=== PATIENT | male | born 1945 | race Caucasian/White ===

== ENCOUNTER 2016-06-08 23:55 | Emergency (ER) | payer MEDICARE, BC ==
[~2016-06-08] VITALS: Ht 172.7 cm; Wt 90.7 kg
[2016-06-09 00:23] VITALS: BP 128/82
[2016-06-09] MEDS ORDERED: TOPROL XL25 MG ORAL (00:24)
[2016-06-09] MEDS ORDERED: UROXATRAL10 MG ORAL (00:24)
[2016-06-09] MEDS ORDERED: COUMADIN10 MG ORAL (00:24)
[2016-06-09] MEDS ORDERED: METOPROLOL SUC100 MG ORAL (00:24)
[2016-06-09 01:14] LABS: BASOPHILS % (AUTO) 1.4 % (0.0-2.0); EOSINOPHILS % (AUTO) 3.7 % (0.0-3.0); MEAN CORPUSCULAR HEMOGLOBIN 30.4 PG (27.0-31.0); MEAN CORPUSCULAR HGB CONC 33.8 G/DL (32.0-36.0); MEAN CORPUSCULAR VOLUME 90 FL (80-99); MEAN PLATELET VOLUME 5.7 FL (6.5-10.1); MONOCYTES % (AUTO) 10.7 % (1.0-10.0); NEUTROPHILS % (AUTO) 61.3 % (45.0-75.0); PLATELET COUNT 327 K/UL (150-450); RED BLOOD COUNT 4.99 M/UL (4.70-6.10); RED CELL DISTRIBUTION WIDTH 12.5 % (11.6-14.8); WHITE BLOOD COUNT 11.9 K/UL (4.8-10.8)
[2016-06-09 01:20] LABS: INR 1.1 (0.9-1.1)
[2016-06-09 01:35] LABS: TROPONIN I < 0.30 ng/mL (<=0.30)
[2016-06-09 01:42] LABS: ALANINE AMINOTRANSFERASE 14 U/L (3-41); ANION GAP 17 (5-15); ASPARTATE AMINO TRANSFERASE 17 U/L (5-40); CALCIUM 9.2 mg/dL (8.6-10.2); CARBON DIOXIDE 23 mEQ/L (20-30); CHLORIDE 98 mEQ/L (98-107); GLOMERULAR FILTRATION RATE > 60 mL/min (>60); HEMOLYSIS 5; POTASSIUM 4.1 mEQ/L (3.4-4.9); SODIUM 138 mEQ/L (135-145)
[2016-06-09 01:52] LABS: CKMB 1.9 ng/mL (< 6.7)
[2016-06-09 02:31] LABS: ALBUMIN/GLOBULIN RATIO 0.9 (1.0-2.7); TOTAL PROTEIN 7.7 g/dL (6.6-8.7)
[2016-06-09] MEDS ORDERED: Xarelto 10mg tab ORAL STA (02:33)
--- NOTE | 2016-06-09 03:44 | Emergency Room Report ---
History of Present Illness General Chief Complaint: Chest Pain Source: Patient Present Illness HPI 70YO M with 2-3 days of central non-radiating chest pain, intermittent, 6/10. No assoc nausea/vomiting/diaphoresis. States he was recently switched from Coumadin to Xarelto for known AFIB but Rx was accidentally sent to [place] by PMD Dr Olson. He has not taken Xarelto or Coumadin in 7 days. He denies SOB , abd pain, urinary complaints, fever/chills cough. Allergies: Coded Allergies: No Known Allergies (Unverified , 06/09/16) Patient History Past Medical History: AFib Past Surgical History: none Pertinent Family History: none Social History: Denies: alcohol use, drug use, smoking Immunizations: UTD Reviewed Nursing Documentation: PMH: Agreed, PSxH: Agreed Nursing Documentation-PMH Hx Cardiac Problems: Yes - atrial fib, gout Review of Systems All Other Systems: negative except mentioned in HPI Physical Exam Vital Signs Date Time Temp Pulse Resp B/P Pulse Ox O2 Delivery O2 Flow Rate FiO2 06/09/16 00:13 98.2 90 18 128/82 100 Room Air Sp02 EP Interpretation: reviewed, normal General Appearance: normal inspection, well appearing, no apparent distress, alert, GCS 15, non-toxic, other - Resting comfortably Head: normocephalic, atraumatic Eyes: bilateral eye EOMI, bilateral eye PERRL ENT: normal ENT inspection, hearing grossly normal, normal voice Neck: normal inspection, full range of motion, supple, no bony tend Respiratory: normal inspection, lungs clear, normal breath sounds, no respiratory distress, no retraction, no wheezing Cardiovascular #1: no edema, irregularly irregular Gastrointestinal: normal inspection, normal bowel sounds, non tender, soft, no guarding, no hernia Genitourinary: no CVA tenderness Musculoskeletal: normal inspection, back normal, normal range of motion, Flor' s Sign negative Neurologic: normal inspection, alert, oriented x3, responsive, 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 I attest that this information is true, accurate and complete to the best of my knowledge. I understand that any falsification, omission, or concealment of material fact may subject me to administrative, civil, or criminal liability. This patient warrants hospital admission for extreme of age and has a condition that cannot be treated as outpatient. Diagnostic Impression: Primary Impression: Chest pain Qualified Codes: R07.9 - Chest pain, unspecified ER Course ECG is Atrial fib without RVR Labs: Mild leuks but afebrile and no PNA or other source of sepsis/infection. H &H stable. Troponin 0. CXR: No PNA, PTX or pulm congestion Gave patient his recommended Xarelto dose per PMD [place] Chest pain - no acute ischemia on ECG. - Troponin 0. - Unlikely ACS given duration of symptoms - Angina vs MSK pain Strongly recommended admission to patient in multiple conversations however patient doesnt want to stay. He is sober, alert and oriented. Has Capacity Lives "around the corner." Has Rx for Xarelto. Prefers f/up with Dr Olson instead Understands risks of leaving including heart attack, permanent disability, Verbalized understanding, signed AMA paperwork EKG Diagnostic Results Rate: other - Atrial fib WITHOUT RVR ST Segments: no acute changes ASA given to the pt in ED: No Rhythm Strip Diag. Results EP Interpretation: yes Rate: 80 Rhythm: other Chest X-Ray Diagnostic Results EP Interpretation: Yes Findings: no consolidation, no effusion, no pneumothorax, no acute cardiopulmonary disease Number of Views: 1 Last Vital Signs Date Time Temp Pulse Resp B/P Pulse Ox O2 Delivery O2 Flow Rate FiO2 06/09/16 00:23 98.2 89 18 128/82 100 Room Air Status: improved Disposition: AGAINST MEDICAL ADVICE Condition: Serious Referrals: EVELYNE ARMAS (PCP) FLIP BURT M.D. Jun 09, 2016 03:44
[2016-06-09 03:55] VITALS: BP 126/29
[2016-06-09 04:41] VITALS: BP 126/29
--- NOTE | 2016-06-09 13:44 | Diagnostic Imaging Report ---
Indications: Chest pain Technique: Portable AP chest Findings: Comparison: None Lordotic projection of the image for shortness the cardiomediastinal silhouette and limits evaluation. Cardiac silhouette mildly enlarged. Pulmonary vasculature within normal limits. Visualized portions of lungs and pleura clear. IMPRESSION: No evidence of acute cardiopulmonary disease, limited as described. Upright PA and lateral chest radiographs with better inspiratory effort and optimal technique recommended for more complete evaluation. Apparent cardiomegaly, may be artifactually enhanced due to technique.
== END 2016-06-09 04:41 | disposition left against medical advice (07) ==
LOC: EMR 06-09 00:42
DX: R07.9 Chest pain, unspecified (principal); I48.91 Unspecified atrial fibrillation; Z79.01 Long term (current) use of anticoagulants
CPT/HCPCS: 36415; 71010; 80053; 82550; 82553; 84484; 85025; 85610; 93005; 99283